=== PATIENT | male | born 1945 | race African-American/Black ===

== ENCOUNTER 2019-01-04 13:31 | Emergency (ER) | payer MEDICARE, OTHER ==
[2019-01-04 14:25] LABS: WHITE BLOOD COUNT 14.8 10^3/ul (4.8-10.8)
[2019-01-04 14:25] LABS: ABNORMAL IP MESSAGE 1; HEMATOCRIT 20.4 % (42.0-52.0); MEAN CORPUSCULAR HEMOGLOBIN 28.8 pg (29.0-33.0); MEAN CORPUSCULAR HGB CONC 27.9 g/dl (32.0-37.0); MEAN PLATELET VOLUME 11.8 fl (7.4-10.4); NUCLEATED RED BLOOD CELLS% 2.4 /100WBC (0.0-0.0); PLATELET COUNT 158 10^3/UL (140-415); POSITIVE DIFF @See below; RED BLOOD COUNT 1.98 10^6/ul (4.70-6.10); RED CELL DISTRIBUTION WIDTH 20.7 % (11.5-14.5)
[2019-01-04] MEDS ORDERED: PANTOPRAZOLE 40 MG INJ IV (14:30)
[2019-01-04 14:37] LABS: INR 1.54; PROTIME 18.6 Sec (11.9-14.9); PT RATIO 1.5
[2019-01-04 14:38] LABS: ADD MAN DIFF? YES; HEMOGLOBIN 5.7 g/dl (14.0-18.0); PATH REVIEW? YES
[2019-01-04 14:39] LABS: PARTIAL THROMBOPLASTIN TIME 60.7 Sec (23.0-35.0)
[2019-01-04 14:52] LABS: ALANINE AMINOTRANSFERASE 203 IU/L (13-69); ALBUMIN 2.6 g/dl (3.3-4.9); ALBUMIN/GLOBULIN RATIO 0.72; ALKALINE PHOSPHATASE 105 IU/L (42-121); ANION GAP 21 (5-13); ASPARTATE AMINO TRANSFERASE 269 IU/L (15-46); BLOOD UREA NITROGEN 61 mg/dl (7-20); CALCIUM 8.9 mg/dl (8.4-10.2); CARBON DIOXIDE 13 mmol/L (21-31); CHLORIDE 106 mmol/L (97-110); CREATININE 0.75 mg/dl (0.61-1.24); GLUCOSE 290 mg/dl (70-220); SODIUM 140 mmol/L (135-144); TOTAL PROTEIN 6.2 g/dl (6.1-8.1)
[2019-01-04 15:01] LABS: POTASSIUM 6.2 mmol/L (3.5-5.1)
[2019-01-04 15:02] LABS: TROPONIN-I 0.019 ng/ml (0.000-0.120)
[2019-01-04 17:00] LABS: ANISOCYTOSIS 1+ (0-0); BAND NEUTROPHILS #M 0.4 10^3/ul (0.0-0.6); BAND NEUTROPHILS % (M) 3 % (0-4); BURR CELLS 1+ (0-0); EOSINOPHILS % (M) 1 % (0-7); LYMPHOCYTES % (M) 41 % (15-51); METAMYELOCYTES #M 0.4 10^3/ul (0.0-0.0); METAMYELOCYTES %M 3 % (0-0); MICROCYTOSIS 1+ (0-0); MONOCYTE #M 0.4 10^3/ul (0.3-0.9); MONOCYTES % (M) 3 % (0-11); MYELOCYTES % (M) 7 % (0-0); PLATELET MORPHOLOGY COMMENT @See below; POIKILOCYTOSIS 1+ (0-0); POLYCHROMASIA 1+ (0-0); PROMYELOCYTES #M 0.1 10^3/ul (0-0); PROMYELOCYTES % (M) 1 % (0-0); SEG NEUT #M 6.3 10^3/ul (1.6-7.5); SEGMENTED NEUTROPHILS (M) % 42 % (39-77); SMUDGE%M 13 % (0-0)
== END 2019-01-04 18:53 | disposition expired ==
LOC: E/R 13:31
DX: I46.9 Cardiac arrest, cause unspecified (principal); K92.2 Gastrointestinal hemorrhage, unspecified; J96.90 Respiratory failure, unspecified, unspecified whether with hypoxia or hypercapnia
CPT/HCPCS: 36415; 71045; 76937; 80053; 84484; 85025; 85610; 85730; 86850; 86900; 86901; 87040; 92950; 94002; 99291-25